=== PATIENT | male | born 1930 | race Caucasian/White ===

== ENCOUNTER 2017-08-17 16:05 | Inpatient (IN) | payer MEDICARE, OTHER ==
[~2017-08-17] VITALS: Ht 182.9 cm; Wt 79.5 kg
[~2017-08-17 16:05] MED LIST: AMIO200T57 PO; AMLO2.5T PO; APIX2.5T PO; FURO-149 PO; NITR0.4T48 SL; OMEP20CA4 PO; POTA20TA19 PO
[2017-08-17] MEDS ORDERED: normal saline 1000ML IV soln IVB ONE (17:10)
[2017-08-17] MEDS ORDERED: ipratropium/albuterol 3ml nebule NEB ONE (17:10)
[2017-08-17] MEDS ORDERED: oseltamivir phos 75mg capsule PO ONE (17:30)
[2017-08-17 17:33] LABS: BASOPHILS # (AUTO) 0.1 X10'3 (0-0.2); BASOPHILS % (AUTO) 0.5 % (0-1); EOSINOPHILS % (AUTO) 0.3 % (0-6); HEMATOCRIT 38.7 % (42.0-52.0); HEMOGLOBIN 13.3 g/dl (14.0-17.9); LYMPHOCYTES # (AUTO) 0.4 X10'3 (1.1-4.8); LYMPHOCYTES % (AUTO) 3.4 % (21-51); MEAN CORPUSCULAR HEMOGLOBIN 30.1 PG (27.0-31.0); MEAN CORPUSCULAR HGB CONC 34.3 % (33.0-36.5); MEAN CORPUSCULAR VOLUME 87.7 FL (78-98); MEAN PLATELET VOLUME 9.1 FL (7.4-10.4); MONOCYTES # (AUTO) 0.5 X10'3 (0-0.9); NEUTROPHILS # (AUTO) 9.5 X10'3 (1.8-7.7); NEUTROPHILS % (AUTO) 90.8 % (42-75); PLATELET COUNT 157 X10'3 (140-440); RED BLOOD COUNT 4.42 X10'6 (4.70-6.10); RED CELL DISTRIBUTION WIDTH 15.1 % (11.5-14.5); WHITE BLOOD COUNT 10.4 X10'3 (4.5-11.0)
[2017-08-17 17:45] LABS: INR 1.1 INR; PARTIAL THROMBOPLASTIN TIME 24 SECONDS (22-32)
[2017-08-17 17:49] LABS: ALANINE AMINOTRANSFERASE 27 U/L (12-78); ALBUMIN 3.8 G/DL (3.4-5.0); ALBUMIN/GLOBULIN RATIO 1.4 (1.1-1.5); ALKALINE PHOSPHATASE 56 IU/L (46-116); ANION GAP 10 (8-16); ASPARTATE AMINO TRANSFERASE 19 U/L (10-37); BILIRUBIN,TOTAL 0.9 MG/DL (0.1-1.0); BLOOD UREA NITROGEN 15 MG/DL (7-18); BUN/CREATININE RATIO 12.5 (5.4-32.0); CALCIUM 8.4 MG/DL (8.5-10.1); CHLORIDE 99 MMOL/L (99-107); GLUCOSE 115 MG/DL (70-104); POTASSIUM 4.2 MMOL/L (3.5-5.1); SODIUM 136 MMOL/L (135-145); TOTAL PROTEIN 6.5 G/DL (6.4-8.2); eGFR 57 ML/MIN
[2017-08-17] MEDS ORDERED: magnesium 4gm in 100ml NS 100 ML IV PRN (18:35)
[2017-08-17] MEDS ORDERED: magnesium hydroxide 30ml (MOM) UD suspension PO PRN (18:35)
[2017-08-17] MEDS ORDERED: mag hydrox/Alum hydrox/simeth 30ml oral suspension PO PRN (18:35)
[2017-08-17] MEDS ORDERED: potassium Cl 20 mEq SR tablet PO PRN ×2 (18:35)
[2017-08-17] MEDS ORDERED: HYDROcodone/acetaminophen 5mg/325mg tablet PO PRN (18:35)
[2017-08-17] MEDS ORDERED: ondansetron/PF 4mg/2ml inj IV PRN (18:35)
[2017-08-17] MEDS ORDERED: acetaminophen 325mg tablet PO PRN (18:35)
[2017-08-17] MEDS ORDERED: magnesium Cl slow-release 64mg tablet PO PRN (18:35)
[2017-08-17] MEDS ORDERED: potassium Cl 40MEQ/NS 500ml 500 ML IV PRN ×2 (18:35)
[2017-08-17] MEDS ORDERED: magnesium 2GM in 50ml NS 50 ML IV PRN (18:35)
[2017-08-17] MEDS ORDERED: bisacodyl 10mg suppository rectal RC PRN (18:35)
[2017-08-17] MEDS ORDERED: nitroGLYCERIN 0.4mg SUBLingual tab SL PRN (18:40)
[2017-08-17] MEDS ORDERED: CARV6.253 PO (18:53)
[2017-08-17] MEDS ORDERED: CARV-50 PO (18:53)
[2017-08-17] MEDS ORDERED: LISI-600 PO (18:56)
[2017-08-17] MEDS ORDERED: HYDR-4070 PO (18:57)
[2017-08-17] MEDS: levoFLOXACIN-Levaquin 750MG/D5 150 ML IV SCH (19:04)
[2017-08-17] MEDS: sodium chloride 0.45% 1,000 ML IV SCH (19:11)
[2017-08-17] MEDS: docusate sod 100mg capsule PO SCH (19:12)
[2017-08-17] MEDS: potassium Cl 20 mEq SR tablet PO SCH (19:12)
[2017-08-17] MEDS: guaiFENesin 200 MG/10 ML oral syrup UD cup PO SCH (19:12)
[2017-08-17] MEDS ORDERED: apixaban 2.5mg tablet PO SCH (20:00)
[2017-08-18] VITALS: BP 128/74
[2017-08-18] MEDS: guaiFENesin 200 MG/10 ML oral syrup UD cup PO SCH ×4 (02:28→20:48)
[2017-08-18 03:43] LABS: BASOPHILS % (AUTO) 0 % (0-1); EOSINOPHILS # (AUTO) 0.2 X10'3 (0-0.9); EOSINOPHILS % (AUTO) 1.3 % (0-6); HEMATOCRIT 30.6 % (42.0-52.0); HEMOGLOBIN 10.7 g/dl (14.0-17.9); LYMPHOCYTES % (AUTO) 6.6 % (21-51); MEAN CORPUSCULAR HEMOGLOBIN 30.3 PG (27.0-31.0); MEAN CORPUSCULAR VOLUME 86.5 FL (78-98); MEAN PLATELET VOLUME 9.8 FL (7.4-10.4); MONOCYTES % (AUTO) 6.6 % (2-12); NEUTROPHILS # (AUTO) 12.7 X10'3 (1.8-7.7); NEUTROPHILS % (AUTO) 85.5 % (42-75); PLATELET COUNT 120 X10'3 (140-440); RED BLOOD COUNT 3.53 X10'6 (4.70-6.10); RED CELL DISTRIBUTION WIDTH 14.6 % (11.5-14.5); WHITE BLOOD COUNT 14.8 X10'3 (4.5-11.0)
[2017-08-18 03:51] LABS: ALBUMIN 2.8 G/DL (3.4-5.0); ANION GAP 6 (8-16); BLOOD UREA NITROGEN 18 MG/DL (7-18); BUN/CREATININE RATIO 13.4 (5.4-32.0); CALCIUM 7.6 MG/DL (8.5-10.1); CHLORIDE 98 MMOL/L (99-107); CREATININE 1.34 MG/DL (0.60-1.10); GLUCOSE 120 MG/DL (70-104); MAGNESIUM 1.8 MG/DL (1.5-2.4); POTASSIUM 4.9 MMOL/L (3.5-5.1); SODIUM 131 MMOL/L (135-145); TOTAL CARBON DIOXIDE 26.7 MMOL/L (24-32); eGFR 50 ML/MIN
[2017-08-18] MEDS: K and/or MAG REPLACEMENT MC SCH (06:24)
[2017-08-18 07:00] VITALS: BP 98/50
[2017-08-18] MEDS: sodium chloride 0.45% 1,000 ML IV SCH (07:25)
[2017-08-18] MEDS: levoFLOXACIN-Levaquin 750MG/D5 150 ML IV SCH (07:27)
[2017-08-18] MEDS: docusate sod 100mg capsule PO SCH ×2 (07:29→20:48)
[2017-08-18] MEDS: pantoprazole 40mg Tablet.DR PO SCH (07:29)
[2017-08-18] MEDS: potassium Cl 20 mEq SR tablet PO SCH ×2 (07:29→20:48)
[2017-08-18] MEDS: amiodarone 200mg tablet PO SCH (07:29)
[2017-08-18] MEDS: enoxaparin 40mg/0.4ml syringe SUBCUT SCH (07:30)
[2017-08-18] MEDS: aspirin 81mg tablet.DR PO SCH (07:30)
[2017-08-18] MEDS ORDERED: amLODIPine 5mg tablet PO SCH (08:00)
[2017-08-18] MEDS ORDERED: non-formulary drug (Omeprazole (Prilosec) 1 CAP) PO SCH (08:00)
[2017-08-18] MEDS ORDERED: furosemide 40mg tablet PO SCH (08:00)
[2017-08-18 11:30] VITALS: BP 138/71
[2017-08-18] MEDS: lactobacillus rhamnosus 10,000 MMU CELLS/CAPSULE PO SCH (17:39)
[2017-08-18 19:30] VITALS: BP 171/93
[2017-08-18] MEDS: albuterol 2.5 MG/3 ML nebule NEB PRN (21:41)
[2017-08-18 23:30] VITALS: BP 157/72
[2017-08-19] MEDS: guaiFENesin 200 MG/10 ML oral syrup UD cup PO SCH ×4 (02:30→20:22)
[2017-08-19] MEDS: albuterol 2.5 MG/3 ML nebule NEB PRN ×2 (05:44→15:32)
[2017-08-19 06:03] LABS: BASOPHILS % (AUTO) 0.1 % (0-1); EOSINOPHILS # (AUTO) 0.2 X10'3 (0-0.9); HEMATOCRIT 31.8 % (42.0-52.0); LYMPHOCYTES # (AUTO) 0.7 X10'3 (1.1-4.8); LYMPHOCYTES % (AUTO) 6.6 % (21-51); MEAN CORPUSCULAR HEMOGLOBIN 30.4 PG (27.0-31.0); MEAN CORPUSCULAR HGB CONC 34.5 % (33.0-36.5); MEAN CORPUSCULAR VOLUME 88.1 FL (78-98); MEAN PLATELET VOLUME 9.9 FL (7.4-10.4); MONOCYTES # (AUTO) 0.9 X10'3 (0-0.9); MONOCYTES % (AUTO) 7.9 % (2-12); NEUTROPHILS # (AUTO) 9.4 X10'3 (1.8-7.7); NEUTROPHILS % (AUTO) 83.4 % (42-75); PLATELET COUNT 121 X10'3 (140-440); RED BLOOD COUNT 3.61 X10'6 (4.70-6.10); RED CELL DISTRIBUTION WIDTH 14.5 % (11.5-14.5); WHITE BLOOD COUNT 11.3 X10'3 (4.5-11.0)
[2017-08-19 06:07] LABS: ALBUMIN 2.8 G/DL (3.4-5.0); ANION GAP 7 (8-16); BLOOD UREA NITROGEN 20 MG/DL (7-18); CHLORIDE 97 MMOL/L (99-107); CREATININE 1.25 MG/DL (0.60-1.10); GLUCOSE 101 MG/DL (70-104); MAGNESIUM 1.8 MG/DL (1.5-2.4); POTASSIUM 4.7 MMOL/L (3.5-5.1); SODIUM 129 MMOL/L (135-145); eGFR 55 ML/MIN
[2017-08-19 07:30] VITALS: BP 157/87
[2017-08-19] MEDS: K and/or MAG REPLACEMENT MC SCH (08:00)
[2017-08-19] MEDS ORDERED: furosemide 20MG tablet PO SCH (08:00)
[2017-08-19] MEDS: docusate sod 100mg capsule PO SCH ×2 (08:00→20:22)
[2017-08-19] MEDS: amiodarone 200mg tablet PO SCH (08:00)
[2017-08-19] MEDS: lactobacillus rhamnosus 10,000 MMU CELLS/CAPSULE PO SCH ×2 (08:45→16:37)
[2017-08-19] MEDS: pantoprazole 40mg Tablet.DR PO SCH (08:45)
[2017-08-19] MEDS: levoFLOXACIN-Levaquin 750MG/D5 150 ML IV SCH (08:45)
[2017-08-19] MEDS: aspirin 81mg tablet.DR PO SCH (08:48)
[2017-08-19] MEDS: enoxaparin 40mg/0.4ml syringe SUBCUT SCH (08:49)
[2017-08-19] MEDS: normal saline 1000ml 1,000 ML IV SCH ×2 (08:49→20:23)
[2017-08-19 11:54] VITALS: BP 153/83
[2017-08-19 12:02] LABS: ALBUMIN 2.8 G/DL (3.4-5.0); ANION GAP 6 (8-16); BLOOD UREA NITROGEN 20 MG/DL (7-18); BUN/CREATININE RATIO 15.6 (5.4-32.0); CHLORIDE 97 MMOL/L (99-107); CREATININE 1.28 MG/DL (0.60-1.10); GLUCOSE 110 MG/DL (70-104); POTASSIUM 4.4 MMOL/L (3.5-5.1); SODIUM 128 MMOL/L (135-145); TOTAL CARBON DIOXIDE 24.6 MMOL/L (24-32); eGFR 53 ML/MIN
[2017-08-19 19:00] VITALS: BP 143/83
[2017-08-20] VITALS: BP 159/81
[2017-08-20] MEDS: guaiFENesin 200 MG/10 ML oral syrup UD cup PO SCH ×5 (02:00→22:22)
[2017-08-20] MEDS: albuterol 2.5 MG/3 ML nebule NEB PRN ×3 (03:43→22:28)
[2017-08-20 06:15] LABS: BASOPHILS % (AUTO) 0 % (0-1); EOSINOPHILS % (AUTO) 0.2 % (0-6); HEMATOCRIT 32.4 % (42.0-52.0); HEMOGLOBIN 11.1 g/dl (14.0-17.9); LYMPHOCYTES # (AUTO) 0.4 X10'3 (1.1-4.8); LYMPHOCYTES % (AUTO) 5.1 % (21-51); MEAN CORPUSCULAR HEMOGLOBIN 30.3 PG (27.0-31.0); MEAN CORPUSCULAR HGB CONC 34.5 % (33.0-36.5); MEAN CORPUSCULAR VOLUME 87.9 FL (78-98); MEAN PLATELET VOLUME 9.3 FL (7.4-10.4); MONOCYTES # (AUTO) 0.9 X10'3 (0-0.9); MONOCYTES % (AUTO) 10.2 % (2-12); NEUTROPHILS # (AUTO) 7.3 X10'3 (1.8-7.7); NEUTROPHILS % (AUTO) 84.5 % (42-75); PLATELET COUNT 123 X10'3 (140-440); RED BLOOD COUNT 3.68 X10'6 (4.70-6.10); RED CELL DISTRIBUTION WIDTH 14.6 % (11.5-14.5); WHITE BLOOD COUNT 8.6 X10'3 (4.5-11.0)
[2017-08-20 06:23] LABS: ALBUMIN 3.1 G/DL (3.4-5.0); ANION GAP 9 (8-16); BLOOD UREA NITROGEN 15 MG/DL (7-18); BUN/CREATININE RATIO 12.5 (5.4-32.0); CALCIUM 7.8 MG/DL (8.5-10.1); CHLORIDE 95 MMOL/L (99-107); GLUCOSE 105 MG/DL (70-104); MAGNESIUM 1.7 MG/DL (1.5-2.4); POTASSIUM 4.2 MMOL/L (3.5-5.1); SODIUM 127 MMOL/L (135-145); TOTAL CARBON DIOXIDE 23.1 MMOL/L (24-32); eGFR 57 ML/MIN
[2017-08-20 07:33] VITALS: BP 168/90
[2017-08-20] MEDS: pantoprazole 40mg Tablet.DR PO SCH (07:49)
[2017-08-20] MEDS: lactobacillus rhamnosus 10,000 MMU CELLS/CAPSULE PO SCH ×2 (07:49→16:35)
[2017-08-20] MEDS: normal saline 1000ml 1,000 ML IV SCH (07:50)
[2017-08-20] MEDS: docusate sod 100mg capsule PO SCH ×2 (07:50→22:22)
[2017-08-20] MEDS: amiodarone 200mg tablet PO SCH (07:50)
[2017-08-20] MEDS: aspirin 81mg tablet.DR PO SCH (07:51)
[2017-08-20] MEDS: enoxaparin 40mg/0.4ml syringe SUBCUT SCH (07:52)
[2017-08-20] MEDS: K and/or MAG REPLACEMENT MC SCH (08:00)
[2017-08-20] MEDS ORDERED: furosemide 40mg/4ml inj IV ONE (10:05)
[2017-08-20] MEDS ORDERED: furosemide 20 MG/2 ML vial IV ONE (10:10)
[2017-08-20 12:10] VITALS: BP_SYST 99
[2017-08-20 20:00] VITALS: BP 162/95
[2017-08-20] MEDS ORDERED: carvedilol 6.25mg tablet PO SCH (20:00)
[2017-08-20 21:25] LABS: ALBUMIN 3.1 G/DL (3.4-5.0); ANION GAP 8 (8-16); BLOOD UREA NITROGEN 18 MG/DL (7-18); BUN/CREATININE RATIO 14.2 (5.4-32.0); CALCIUM 8.3 MG/DL (8.5-10.1); CHLORIDE 94 MMOL/L (99-107); CREATININE 1.27 MG/DL (0.60-1.10); GLUCOSE 119 MG/DL (70-104); POTASSIUM 4.1 MMOL/L (3.5-5.1); SODIUM 128 MMOL/L (135-145); TOTAL CARBON DIOXIDE 26.3 MMOL/L (24-32); eGFR 54 ML/MIN
[2017-08-20] MEDS: furosemide 20 MG/2 ML vial IV SCH (22:21)
[2017-08-20] MEDS: carVEDilol 3.125mg tablet PO SCH (22:22)
[2017-08-21] VITALS: BP 131/91
[2017-08-21] MEDS: guaiFENesin 200 MG/10 ML oral syrup UD cup PO SCH ×4 (02:00→21:06)
[2017-08-21 06:08] LABS: ALBUMIN 2.9 G/DL (3.4-5.0); ANION GAP 7 (8-16); BLOOD UREA NITROGEN 15 MG/DL (7-18); BUN/CREATININE RATIO 12.2 (5.4-32.0); CHLORIDE 95 MMOL/L (99-107); CREATININE 1.23 MG/DL (0.60-1.10); GLUCOSE 105 MG/DL (70-104); MAGNESIUM 1.8 MG/DL (1.5-2.4); POTASSIUM 3.9 MMOL/L (3.5-5.1); SODIUM 129 MMOL/L (135-145); TOTAL CARBON DIOXIDE 27.2 MMOL/L (24-32); eGFR 56 ML/MIN
[2017-08-21 07:00] VITALS: BP 158/84
[2017-08-21] MEDS: enoxaparin 40mg/0.4ml syringe SUBCUT SCH (08:00)
[2017-08-21] MEDS ORDERED: carvedilol 6.25mg tablet PO SCH (08:00)
[2017-08-21] MEDS: K and/or MAG REPLACEMENT MC SCH (08:00)
[2017-08-21] MEDS: furosemide 20 MG/2 ML vial IV SCH ×2 (08:00→10:04)
[2017-08-21] MEDS: aspirin 81mg tablet.DR PO SCH (08:26)
[2017-08-21] MEDS: carVEDilol 3.125mg tablet PO SCH ×2 (08:26→21:06)
[2017-08-21] MEDS: amiodarone 200mg tablet PO SCH (08:26)
[2017-08-21] MEDS: docusate sod 100mg capsule PO SCH ×2 (08:26→21:06)
[2017-08-21] MEDS: lactobacillus rhamnosus 10,000 MMU CELLS/CAPSULE PO SCH ×2 (08:26→17:37)
[2017-08-21] MEDS: pantoprazole 40mg Tablet.DR PO SCH (08:26)
[2017-08-21] MEDS: levoFLOXACIN-Levaquin 750MG/D5 150 ML IV SCH (08:27)
[2017-08-21 11:00] VITALS: BP 142/82
[2017-08-21] MEDS: methylPREDNISolone sod succ 125mg/2ml vial IV SCH (17:37)
[2017-08-21] MEDS: benzonatate 100mg capsule PO SCH (17:37)
[2017-08-21] MEDS: ipratropium/albuterol 3ml nebule NEB SCH ×2 (19:00→23:13)
[2017-08-21 20:00] VITALS: BP 165/90
[2017-08-22] VITALS: BP 165/94
[2017-08-22] MEDS: methylPREDNISolone sod succ 125mg/2ml vial IV SCH ×2 (01:12→08:39)
[2017-08-22] MEDS: guaiFENesin 200 MG/10 ML oral syrup UD cup PO SCH ×2 (01:12→08:40)
[2017-08-22] MEDS: benzonatate 100mg capsule PO SCH ×2 (01:12→08:41)
[2017-08-22] MEDS: ipratropium/albuterol 3ml nebule NEB SCH ×3 (03:01→11:17)
[2017-08-22 05:40] LABS: ANION GAP 7 (8-16); BLOOD UREA NITROGEN 18 MG/DL (7-18); BUN/CREATININE RATIO 16.7 (5.4-32.0); CALCIUM 7.8 MG/DL (8.5-10.1); CHLORIDE 92 MMOL/L (99-107); CREATININE 1.08 MG/DL (0.60-1.10); GLUCOSE 137 MG/DL (70-104); POTASSIUM 3.8 MMOL/L (3.5-5.1); SODIUM 127 MMOL/L (135-145); TOTAL CARBON DIOXIDE 28.5 MMOL/L (24-32); eGFR 65 ML/MIN
[2017-08-22 06:00] VITALS: BP 159/87
[2017-08-22] MEDS: amiodarone 200mg tablet PO SCH (08:00)
[2017-08-22] MEDS: K and/or MAG REPLACEMENT MC SCH (08:00)
[2017-08-22] MEDS: furosemide 20 MG/2 ML vial IV SCH (08:39)
[2017-08-22] MEDS: carVEDilol 3.125mg tablet PO SCH (08:40)
[2017-08-22] MEDS: lactobacillus rhamnosus 10,000 MMU CELLS/CAPSULE PO SCH (08:40)
[2017-08-22] MEDS: docusate sod 100mg capsule PO SCH (08:40)
[2017-08-22] MEDS: aspirin 81mg tablet.DR PO SCH (08:40)
[2017-08-22] MEDS: enoxaparin 40mg/0.4ml syringe SUBCUT SCH (08:40)
[2017-08-22] MEDS: pantoprazole 40mg Tablet.DR PO SCH (08:40)
[2017-08-22] MEDS: levoFLOXACIN-Levaquin 750MG/D5 150 ML IV SCH (08:41)
[2017-08-22 08:58] LABS: ALBUMIN 3.2 G/DL (3.4-5.0); ANION GAP 10 (8-16); BLOOD UREA NITROGEN 19 MG/DL (7-18); BUN/CREATININE RATIO 15.8 (5.4-32.0); CALCIUM 8.2 MG/DL (8.5-10.1); CHLORIDE 92 MMOL/L (99-107); GLUCOSE 174 MG/DL (70-104); POTASSIUM 3.8 MMOL/L (3.5-5.1); SODIUM 129 MMOL/L (135-145); TOTAL CARBON DIOXIDE 26.8 MMOL/L (24-32); eGFR 57 ML/MIN
[2017-08-22] MEDS ORDERED: ALBU6.7H INH (10:31)
[2017-08-22] MEDS ORDERED: PANT40TA4 PO (10:31)
[2017-08-22] MEDS ORDERED: BENZ-34 PO (10:31)
[2017-08-22] MEDS ORDERED: LEVO750T21 PO (10:31)
[2017-08-22] MEDS ORDERED: PRED10TA23 PO (10:31)
[2017-08-22] MEDS ORDERED: ASPI-1071 PO (10:31)
[2017-08-22] MEDS ORDERED: FURO-150 PO (10:31)
[2017-08-22 11:30] VITALS: BP 152/86
== END 2017-08-22 14:36 | disposition home or self-care (01) | DRG 193 ==
LOC: ER 16:06 → ED HOLD 17:55 → EDBEDREQTM 21:55 → EDBEDREQ 21:55 → SUR 3N 22:22
PROVIDERS: ADMIT Internal Medicine; ATTEND Internal Medicine
DX: J18.1 Lobar pneumonia, unspecified organism (principal); I50.21 Acute systolic (congestive) heart failure; E87.1 Hypo-osmolality and hyponatremia; I48.91 Unspecified atrial fibrillation; J42 Unspecified chronic bronchitis; I89.0 Lymphedema, not elsewhere classified; R09.02 Hypoxemia; Z90.49 Acquired absence of other specified parts of digestive tract; Z90.79 Acquired absence of other genital organ(s); Z95.0 Presence of cardiac pacemaker; Z79.899 Other long term (current) drug therapy; Z91.018 Allergy to other foods; Z85.46 Personal history of malignant neoplasm of prostate
CPT/HCPCS: 36415; 71045; 71046; 71250; 80048; 80053; 83605; 83735; 84439; 84443; 84484; 85025; 85610; 85730; 87040; 87070; 87502; 87503; 93005; 93306; 94640; 94667; 94760; 97110; 97116; 97162; 99285; J1650; J1940; J1956; J2405; J2930; J7030

== ENCOUNTER 2017-08-26 09:59 | Inpatient (IN) | payer MEDICARE, OTHER ==
[~2017-08-26] VITALS: Ht 185.4 cm; Wt 86.4 kg
[~2017-08-26 09:59] MED LIST changes: +ALBU6.7H INH; -AMIO200T57 PO; -AMLO2.5T PO; -APIX2.5T PO; +ASPI-1071 PO; +BENZ-34 PO; +CARV6.253 PO; -FURO-149 PO; +FURO-150 PO; +HYDR-4070 PO; +LEVO750T21 PO; +LISI-600 PO; -OMEP20CA4 PO; +PANT40TA4 PO; -POTA20TA19 PO; +PRED10TA23 PO
[2017-08-26] MEDS ORDERED: normal saline 1000ml 1,000 ML IV ONE (10:05)
[2017-08-26 10:22] LABS: BASOPHILS % (AUTO) 0.3 % (0-1); EOSINOPHILS # (AUTO) 0.1 X10'3 (0-0.9); EOSINOPHILS % (AUTO) 1.2 % (0-6); HEMATOCRIT 36.3 % (42.0-52.0); HEMOGLOBIN 12.5 g/dl (14.0-17.9); LYMPHOCYTES # (AUTO) 1.1 X10'3 (1.1-4.8); LYMPHOCYTES % (AUTO) 17.5 % (21-51); MEAN CORPUSCULAR HEMOGLOBIN 29.7 PG (27.0-31.0); MEAN CORPUSCULAR HGB CONC 34.5 % (33.0-36.5); MEAN CORPUSCULAR VOLUME 86.1 FL (78-98); MEAN PLATELET VOLUME 8.5 FL (7.4-10.4); MONOCYTES # (AUTO) 0.7 X10'3 (0-0.9); MONOCYTES % (AUTO) 11.9 % (2-12); NEUTROPHILS # (AUTO) 4.1 X10'3 (1.8-7.7); NEUTROPHILS % (AUTO) 69.1 % (42-75); PLATELET COUNT 178 X10'3 (140-440); RED BLOOD COUNT 4.21 X10'6 (4.70-6.10); RED CELL DISTRIBUTION WIDTH 14.6 % (11.5-14.5)
[2017-08-26 10:28] LABS: INR 1.1 INR; PROTHROMBIN TIME 11.1 SECONDS (9.0-12.0)
[2017-08-26 10:47] LABS: ALANINE AMINOTRANSFERASE 33 U/L (12-78); ALBUMIN 2.9 G/DL (3.4-5.0); ALBUMIN/GLOBULIN RATIO 1.1 (1.1-1.5); ALKALINE PHOSPHATASE 45 IU/L (46-116); ANION GAP 9 (8-16); ASPARTATE AMINO TRANSFERASE 21 U/L (10-37); BILIRUBIN,TOTAL 0.4 MG/DL (0.1-1.0); BLOOD UREA NITROGEN 28 MG/DL (7-18); BUN/CREATININE RATIO 18.9 (5.4-32.0); CALCIUM 7.8 MG/DL (8.5-10.1); CHLORIDE 95 MMOL/L (99-107); CREATININE 1.48 MG/DL (0.60-1.10); GLUCOSE 135 MG/DL (70-104); MAGNESIUM 2.2 MG/DL (1.5-2.4); PHOSPHORUS 3.7 MG/DL (2.3-4.5); POTASSIUM 3.8 MMOL/L (3.5-5.1); SODIUM 131 MMOL/L (135-145); TOTAL CARBON DIOXIDE 27.5 MMOL/L (24-32); TOTAL PROTEIN 5.6 G/DL (6.4-8.2); eGFR 45 ML/MIN
[2017-08-26] MEDS ORDERED: cefTRIAXone 1g/NS 100ml IVPB 100 ML IV ONE (12:05)
[2017-08-26 12:23] LABS: CLARITY,URINE CLEAR (Clear); COLOR,URINE STRAW (Yellow); GLUCOSE, URINE NEGATIVE (Neg); KETONES,URINE NEGATIVE (Neg); LEUKOCYTE ESTERASE ,URINE NEGATIVE (Neg); NITRITES, URINE NEGATIVE (Neg); OCCULT BLOOD,URINE NEGATIVE (Neg); PROTEIN,URINE NEGATIVE (Neg); UROBILINOGEN,URINE 0.2 E.U/dL (0.2-1.0)
[2017-08-26 12:29] LABS: UA COLLECTION TYPE VOIDED
[2017-08-26 12:38] LABS: URINE AMPHETAMINE SCREEN NEGATIVE (Neg); URINE BARBITUATE SCREEN NEGATIVE (Neg); URINE BENZODIAZEPINES SCREEN NEGATIVE (Neg); URINE CANNABINOID SCREEN NEGATIVE (Neg); URINE COCAINE SCREEN NEGATIVE (Neg); URINE METHADONE SCREEN NEGATIVE (Neg); URINE OPIATE SCREEN NEGATIVE (Neg); URINE PHENCYCLIDINE SCREEN NEGATIVE (Neg)
[2017-08-26] MEDS ORDERED: acetaminophen 325mg tablet PO PRN (13:10)
[2017-08-26] MEDS ORDERED: ondansetron/PF 4mg/2ml inj IV PRN (13:10)
[2017-08-26] MEDS ORDERED: mag hydrox/Alum hydrox/simeth 30ml oral suspension PO PRN (13:10)
[2017-08-26] MEDS ORDERED: nitroGLYCERIN 0.4mg SUBLingual tab SL PRN (13:15)
[2017-08-26] MEDS ORDERED: albuterol 2.5 MG/3 ML nebule NEB PRN (13:35)
[2017-08-26 15:00] VITALS: BP 153/92
[2017-08-26] MEDS: normal saline 1000ml 1,000 ML IV SCH (16:50)
[2017-08-26 18:00] VITALS: BP 153/92
[2017-08-26] MEDS: heparin, porcine 5000 units/ml vial SQ SCH (19:53)
[2017-08-26] MEDS: carvedilol 6.25mg tablet PO SCH (19:55)
[2017-08-26] MEDS: hydrALAZINE 25 MG tablet PO SCH (19:55)
[2017-08-26 22:00] VITALS: BP 153/84
[2017-08-27 02:00] VITALS: BP 129/72
[2017-08-27] MEDS: guaiFENesin 200 MG/10 ML oral syrup UD cup PO PRN (05:34)
[2017-08-27 06:00] VITALS: BP 117/74
[2017-08-27 06:30] LABS: BASOPHILS % (AUTO) 0.2 % (0-1); EOSINOPHILS # (AUTO) 0.1 X10'3 (0-0.9); HEMATOCRIT 37.7 % (42.0-52.0); HEMOGLOBIN 12.9 g/dl (14.0-17.9); LYMPHOCYTES # (AUTO) 1.3 X10'3 (1.1-4.8); LYMPHOCYTES % (AUTO) 20.2 % (21-51); MEAN CORPUSCULAR HGB CONC 34.3 % (33.0-36.5); MEAN CORPUSCULAR VOLUME 87.2 FL (78-98); MEAN PLATELET VOLUME 8.6 FL (7.4-10.4); MONOCYTES # (AUTO) 0.5 X10'3 (0-0.9); MONOCYTES % (AUTO) 8.5 % (2-12); NEUTROPHILS # (AUTO) 4.5 X10'3 (1.8-7.7); NEUTROPHILS % (AUTO) 69.1 % (42-75); PLATELET COUNT 159 X10'3 (140-440); RED BLOOD COUNT 4.32 X10'6 (4.70-6.10); RED CELL DISTRIBUTION WIDTH 14.5 % (11.5-14.5); WHITE BLOOD COUNT 6.5 X10'3 (4.5-11.0)
[2017-08-27 07:06] LABS: ALBUMIN 2.7 G/DL (3.4-5.0); ANION GAP 8 (8-16); BLOOD UREA NITROGEN 27 MG/DL (7-18); BUN/CREATININE RATIO 20.5 (5.4-32.0); CALCIUM 7.7 MG/DL (8.5-10.1); CHLORIDE 99 MMOL/L (99-107); CHOL/HDL RATIO 4.8 (0.00-4.99); CHOLESTEROL 157 MG/DL (0-200); CREATININE 1.32 MG/DL (0.60-1.10); GLUCOSE 89 MG/DL (70-104); HDL CHOLESTEROL 33 MG/DL (35-60); LDL CHOLESTEROL 99 MG/DL (50-100); POTASSIUM 3.8 MMOL/L (3.5-5.1); SODIUM 133 MMOL/L (135-145); TRIGLYCERIDES 103 MG/DL (20-135); eGFR 51 ML/MIN
[2017-08-27] MEDS: hydrALAZINE 25 MG tablet PO SCH ×2 (08:00→21:31)
[2017-08-27] MEDS: carvedilol 6.25mg tablet PO SCH ×2 (08:00→21:31)
[2017-08-27] MEDS: pantoprazole 40mg Tablet.DR PO SCH (08:20)
[2017-08-27] MEDS: aspirin 81mg tablet.DR PO SCH (08:20)
[2017-08-27] MEDS: normal saline 1000ml 1,000 ML IV SCH ×2 (08:24→23:17)
[2017-08-27] MEDS: heparin, porcine 5000 units/ml vial SQ SCH ×2 (08:26→21:31)
[2017-08-27 10:00] VITALS: BP 114/69
[2017-08-27 14:00] VITALS: BP 125/84
[2017-08-27] MEDS: magnesium hydroxide 30ml (MOM) UD suspension PO PRN (14:09)
[2017-08-27 18:46] VITALS: BP 165/92
[2017-08-27 22:30] VITALS: BP 177/93
[2017-08-28] VITALS (11 sets, daily range): BP systolic 124–188; BP diastolic 68–106
[2017-08-28] MEDS: guaiFENesin 200 MG/10 ML oral syrup UD cup PO PRN (02:32)
[2017-08-28 07:07] LABS: BASOPHILS % (AUTO) 0 % (0-1); EOSINOPHILS # (AUTO) 0.3 X10'3 (0-0.9); EOSINOPHILS % (AUTO) 4.1 % (0-6); HEMATOCRIT 39.1 % (42.0-52.0); HEMOGLOBIN 13.3 g/dl (14.0-17.9); LYMPHOCYTES # (AUTO) 1.4 X10'3 (1.1-4.8); LYMPHOCYTES % (AUTO) 19.4 % (21-51); MEAN CORPUSCULAR HEMOGLOBIN 29.7 PG (27.0-31.0); MEAN CORPUSCULAR VOLUME 87.3 FL (78-98); MEAN PLATELET VOLUME 8.2 FL (7.4-10.4); MONOCYTES # (AUTO) 0.7 X10'3 (0-0.9); MONOCYTES % (AUTO) 8.8 % (2-12); NEUTROPHILS % (AUTO) 67.7 % (42-75); PLATELET COUNT 170 X10'3 (140-440); RED BLOOD COUNT 4.48 X10'6 (4.70-6.10); RED CELL DISTRIBUTION WIDTH 14.6 % (11.5-14.5); WHITE BLOOD COUNT 7.4 X10'3 (4.5-11.0)
[2017-08-28] MEDS: pantoprazole 40mg Tablet.DR PO SCH (07:14)
[2017-08-28] MEDS: hydrALAZINE 25 MG tablet PO SCH ×2 (07:14→22:58)
[2017-08-28] MEDS: atorvastatin 20mg tablet PO SCH (07:14)
[2017-08-28] MEDS: aspirin 81mg tablet.DR PO SCH (07:14)
[2017-08-28] MEDS: carvedilol 6.25mg tablet PO SCH ×2 (07:14→22:59)
[2017-08-28] MEDS: levoFLOXACIN 750MG TABLET PO SCH (07:14)
[2017-08-28] MEDS: heparin, porcine 5000 units/ml vial SQ SCH (07:15)
[2017-08-28 07:17] LABS: ALBUMIN 2.9 G/DL (3.4-5.0); ANION GAP 5 (8-16); BLOOD UREA NITROGEN 20 MG/DL (7-18); BUN/CREATININE RATIO 16.1 (5.4-32.0); CHLORIDE 99 MMOL/L (99-107); CREATININE 1.24 MG/DL (0.60-1.10); GLUCOSE 91 MG/DL (70-104); POTASSIUM 4.6 MMOL/L (3.5-5.1); SODIUM 133 MMOL/L (135-145); TOTAL CARBON DIOXIDE 28.7 MMOL/L (24-32); eGFR 55 ML/MIN
[2017-08-28] MEDS: magnesium hydroxide 30ml (MOM) UD suspension PO PRN (16:44)
[2017-08-28] MEDS: lactobacillus rhamnosus 10,000 MMU CELLS/CAPSULE PO SCH (16:45)
[2017-08-28] MEDS ORDERED: magnesium citrate 296ml oral solution PO ONE (21:00)
[2017-08-28] MEDS ORDERED: mineral oil 133ml enema RC PRN (21:00)
[2017-08-28] MEDS: apixaban 5mg tablet PO SCH (22:59)
[2017-08-29] VITALS (22 sets, daily range): BP systolic 67–176; BP diastolic 47–97
[2017-08-29] MEDS: normal saline 1000ml 1,000 ML IV SCH ×2 (01:09→07:38)
[2017-08-29 05:55] LABS: BASOPHILS % (AUTO) 0.2 % (0-1); EOSINOPHILS # (AUTO) 0.2 X10'3 (0-0.9); EOSINOPHILS % (AUTO) 3.2 % (0-6); HEMATOCRIT 39.8 % (42.0-52.0); HEMOGLOBIN 13.8 g/dl (14.0-17.9); LYMPHOCYTES # (AUTO) 1.3 X10'3 (1.1-4.8); LYMPHOCYTES % (AUTO) 17.6 % (21-51); MEAN CORPUSCULAR HGB CONC 34.6 % (33.0-36.5); MEAN CORPUSCULAR VOLUME 86.7 FL (78-98); MEAN PLATELET VOLUME 8.1 FL (7.4-10.4); MONOCYTES # (AUTO) 0.7 X10'3 (0-0.9); MONOCYTES % (AUTO) 8.6 % (2-12); NEUTROPHILS # (AUTO) 5.4 X10'3 (1.8-7.7); NEUTROPHILS % (AUTO) 70.4 % (42-75); PLATELET COUNT 179 X10'3 (140-440); RED BLOOD COUNT 4.59 X10'6 (4.70-6.10); RED CELL DISTRIBUTION WIDTH 14.8 % (11.5-14.5); WHITE BLOOD COUNT 7.6 X10'3 (4.5-11.0)
[2017-08-29 06:08] LABS: ALBUMIN 2.8 G/DL (3.4-5.0); ANION GAP 6 (8-16); BLOOD UREA NITROGEN 16 MG/DL (7-18); BUN/CREATININE RATIO 13.8 (5.4-32.0); CALCIUM 8.1 MG/DL (8.5-10.1); CHLORIDE 100 MMOL/L (99-107); CREATININE 1.16 MG/DL (0.60-1.10); GLUCOSE 97 MG/DL (70-104); POTASSIUM 4.5 MMOL/L (3.5-5.1); SODIUM 133 MMOL/L (135-145); TOTAL CARBON DIOXIDE 26.9 MMOL/L (24-32); eGFR 59 ML/MIN
[2017-08-29] MEDS: lactobacillus rhamnosus 10,000 MMU CELLS/CAPSULE PO SCH ×2 (07:38→17:02)
[2017-08-29] MEDS: aspirin 81mg tablet.DR PO SCH (07:39)
[2017-08-29] MEDS: pantoprazole 40mg Tablet.DR PO SCH (07:39)
[2017-08-29] MEDS: hydrALAZINE 25 MG tablet PO SCH ×2 (07:39→23:14)
[2017-08-29] MEDS: atorvastatin 20mg tablet PO SCH (07:39)
[2017-08-29] MEDS: apixaban 5mg tablet PO SCH ×2 (07:39→19:10)
[2017-08-29] MEDS: carvedilol 6.25mg tablet PO SCH ×2 (07:39→19:10)
[2017-08-29] MEDS ORDERED: normal saline 1000ml 1,000 ML IV ONE (09:25)
[2017-08-30 02:00] VITALS: BP 137/80
[2017-08-30 06:00] VITALS: BP 164/94
[2017-08-30 06:59] LABS: BASOPHILS % (AUTO) 0.5 % (0-1); EOSINOPHILS # (AUTO) 0.2 X10'3 (0-0.9); EOSINOPHILS % (AUTO) 3.6 % (0-6); HEMATOCRIT 37.9 % (42.0-52.0); LYMPHOCYTES # (AUTO) 1.3 X10'3 (1.1-4.8); LYMPHOCYTES % (AUTO) 20.7 % (21-51); MEAN CORPUSCULAR HEMOGLOBIN 29.8 PG (27.0-31.0); MEAN CORPUSCULAR HGB CONC 34.2 % (33.0-36.5); MEAN CORPUSCULAR VOLUME 87.1 FL (78-98); MEAN PLATELET VOLUME 8.1 FL (7.4-10.4); MONOCYTES # (AUTO) 0.6 X10'3 (0-0.9); MONOCYTES % (AUTO) 9.8 % (2-12); NEUTROPHILS # (AUTO) 4.2 X10'3 (1.8-7.7); NEUTROPHILS % (AUTO) 65.4 % (42-75); PLATELET COUNT 167 X10'3 (140-440); RED BLOOD COUNT 4.35 X10'6 (4.70-6.10); RED CELL DISTRIBUTION WIDTH 14.5 % (11.5-14.5); WHITE BLOOD COUNT 6.4 X10'3 (4.5-11.0)
[2017-08-30 07:25] LABS: ALBUMIN 2.8 G/DL (3.4-5.0); ANION GAP 7 (8-16); BLOOD UREA NITROGEN 20 MG/DL (7-18); BUN/CREATININE RATIO 15.5 (5.4-32.0); CALCIUM 7.9 MG/DL (8.5-10.1); CHLORIDE 101 MMOL/L (99-107); CREATININE 1.29 MG/DL (0.60-1.10); GLUCOSE 91 MG/DL (70-104); POTASSIUM 4.2 MMOL/L (3.5-5.1); SODIUM 132 MMOL/L (135-145); TOTAL CARBON DIOXIDE 23.7 MMOL/L (24-32); eGFR 53 ML/MIN
[2017-08-30 07:59] VITALS: BP_SYST 151; BP_SYST 164; BP_DIAS 82; BP_DIAS 91; BP_DIAS 94
[2017-08-30] MEDS: atorvastatin 20mg tablet PO SCH (08:55)
[2017-08-30] MEDS: aspirin 81mg tablet.DR PO SCH (08:55)
[2017-08-30] MEDS: pantoprazole 40mg Tablet.DR PO SCH (08:55)
[2017-08-30] MEDS: carvedilol 6.25mg tablet PO SCH (08:55)
[2017-08-30] MEDS: apixaban 5mg tablet PO SCH (08:55)
[2017-08-30] MEDS: levoFLOXACIN 750MG TABLET PO SCH (08:55)
[2017-08-30] MEDS: lactobacillus rhamnosus 10,000 MMU CELLS/CAPSULE PO SCH (08:55)
[2017-08-30 11:00] VITALS: BP 101/68
[2017-08-30 11:57] VITALS: BP 129/81
[2017-08-30] MEDS: hydrALAZINE 25 MG tablet PO SCH ×2 (11:57→12:03)
== END 2017-08-30 13:47 | disposition home or self-care (01) | DRG 682 ==
LOC: ER 09:59 → ED HOLD 13:09 → ORTHO 4S 15:00 → PCU 3S 08-28 15:30
PROVIDERS: ADMIT Internal Medicine; ATTEND Family Medicine
PROC: 4B02XSZ Measurement of Cardiac Pacemaker, External Approach (ICD-10-PCS; principal; 2017-08-27)
DX: N17.9 Acute kidney failure, unspecified (principal); G93.40 Encephalopathy, unspecified; I95.9 Hypotension, unspecified; I13.0 Hypertensive heart and chronic kidney disease with heart failure and stage 1 through stage 4 chronic kidney disease, or unspecified chronic kidney disease; I48.0 Paroxysmal atrial fibrillation; E87.1 Hypo-osmolality and hyponatremia; I50.42 Chronic combined systolic (congestive) and diastolic (congestive) heart failure; I49.5 Sick sinus syndrome; I48.92 Unspecified atrial flutter; D32.9 Benign neoplasm of meninges, unspecified; R55 Syncope and collapse; E03.9 Hypothyroidism, unspecified; G47.30 Sleep apnea, unspecified; E78.5 Hyperlipidemia, unspecified; N18.9 Chronic kidney disease, unspecified; Z90.6 Acquired absence of other parts of urinary tract; Z90.79 Acquired absence of other genital organ(s); Z95.0 Presence of cardiac pacemaker; Z88.8 Allergy status to other drugs, medicaments and biological substances; Z79.82 Long term (current) use of aspirin; Z79.899 Other long term (current) drug therapy; Z85.46 Personal history of malignant neoplasm of prostate; Z87.01 Personal history of pneumonia (recurrent)
CPT/HCPCS: 36415; 70450; 71045; 80048; 80053; 80061; 80305; 81003; 82140; 83605; 83735; 84100; 84443; 84484; 85025; 85610; 87040; 87070; 93005; 93660; 93880; 94760; 96361; 96365; 97110; 97116; 97161; 99285; A4315; J0696; J1644; J7030

== ENCOUNTER 2018-02-26 13:24 | Emergency (ER) | payer MEDICARE, OTHER ==
[~2018-02-26] VITALS: Ht 182.9 cm; Wt 80.0 kg
[~2018-02-26 13:24] MED LIST changes: -BENZ-34 PO; +BENZ-49 PO; -FURO-150 PO; -LEVO750T21 PO; -LISI-600 PO; -PRED10TA23 PO
[2018-02-26 13:55] LABS: BASOPHILS % (AUTO) 0.7 % (0-1); HEMATOCRIT 33.5 % (42.0-52.0); HEMOGLOBIN 11.2 g/dl (14.0-17.9); LYMPHOCYTES % (AUTO) 22.3 % (21-51); MEAN CORPUSCULAR HEMOGLOBIN 29.5 PG (27.0-31.0); MEAN CORPUSCULAR HGB CONC 33.3 % (33.0-36.5); MEAN CORPUSCULAR VOLUME 88.6 FL (78-98); MEAN PLATELET VOLUME 7.8 FL (7.4-10.4); MONOCYTES # (AUTO) 0.6 X10'3 (0-0.9); MONOCYTES % (AUTO) 13.3 % (2-12); NEUTROPHILS # (AUTO) 2.8 X10'3 (1.8-7.7); NEUTROPHILS % (AUTO) 62.7 % (42-75); PLATELET COUNT 153 X10'3 (140-440); RED BLOOD COUNT 3.78 X10'6 (4.70-6.10); RED CELL DISTRIBUTION WIDTH 16.1 % (11.5-14.5); WHITE BLOOD COUNT 4.4 X10'3 (4.5-11.0)
[2018-02-26 14:10] LABS: ALANINE AMINOTRANSFERASE 17 U/L (12-78); ALBUMIN 3.4 G/DL (3.4-5.0); ALBUMIN/GLOBULIN RATIO 1.4 (1.1-1.5); ALKALINE PHOSPHATASE 54 IU/L (46-116); ANION GAP 6 (8-16); ASPARTATE AMINO TRANSFERASE 23 U/L (10-37); BILIRUBIN,TOTAL 0.6 MG/DL (0.1-1.0); BLOOD UREA NITROGEN 21 MG/DL (7-18); BUN/CREATININE RATIO 14.6 (5.4-32.0); CALCIUM 8.5 MG/DL (8.5-10.1); CHLORIDE 99 MMOL/L (99-107); CREATININE 1.44 MG/DL (0.60-1.10); GLUCOSE 102 MG/DL (70-104); POTASSIUM 4.5 MMOL/L (3.5-5.1); SODIUM 132 MMOL/L (135-145); TOTAL PROTEIN 5.9 G/DL (6.4-8.2); eGFR 46 ML/MIN
[2018-02-26 14:15] LABS: MAGNESIUM 1.9 MG/DL (1.5-2.4)
[2018-02-26 17:25] VITALS: BP 156/76
== END 2018-02-26 17:27 | disposition home or self-care (01) ==
LOC: ER 13:25
DX: R55 Syncope and collapse (principal); I48.91 Unspecified atrial fibrillation; I10 Essential (primary) hypertension; Z90.89 Acquired absence of other organs; Z85.46 Personal history of malignant neoplasm of prostate; Z91.011 Allergy to milk products; Z95.0 Presence of cardiac pacemaker; Z79.82 Long term (current) use of aspirin
CPT/HCPCS: 36415; 71045; 80053; 83735; 83880; 84484; 85025; 93005; 99285; J7030

== ENCOUNTER 2018-02-28 18:19 | Inpatient (IN) | payer MEDICARE, OTHER ==
[~2018-02-28] VITALS: Ht 182.9 cm; Wt 76.3 kg
[2018-02-28 19:12] LABS: BASOPHILS % (AUTO) 0.4 % (0-1); EOSINOPHILS # (AUTO) 0.1 X10'3 (0-0.9); EOSINOPHILS % (AUTO) 1.9 % (0-6); HEMATOCRIT 34.5 % (42.0-52.0); HEMOGLOBIN 11.5 g/dl (14.0-17.9); LYMPHOCYTES # (AUTO) 1.2 X10'3 (1.1-4.8); LYMPHOCYTES % (AUTO) 20.6 % (21-51); MEAN CORPUSCULAR HEMOGLOBIN 29.7 PG (27.0-31.0); MEAN CORPUSCULAR HGB CONC 33.4 % (33.0-36.5); MEAN CORPUSCULAR VOLUME 88.9 FL (78-98); MEAN PLATELET VOLUME 8.5 FL (7.4-10.4); MONOCYTES # (AUTO) 0.8 X10'3 (0-0.9); MONOCYTES % (AUTO) 13.3 % (2-12); NEUTROPHILS # (AUTO) 3.8 X10'3 (1.8-7.7); NEUTROPHILS % (AUTO) 63.8 % (42-75); PLATELET COUNT 155 X10'3 (140-440); RED BLOOD COUNT 3.88 X10'6 (4.70-6.10); RED CELL DISTRIBUTION WIDTH 15.8 % (11.5-14.5); WHITE BLOOD COUNT 5.9 X10'3 (4.5-11.0)
[2018-02-28 19:19] LABS: INR 1.1 INR; PARTIAL THROMBOPLASTIN TIME 28 SECONDS (22-32); PROTHROMBIN TIME 11.8 SECONDS (9.0-12.0)
[2018-02-28 19:27] LABS: ALANINE AMINOTRANSFERASE 28 U/L (12-78); ALBUMIN 3.4 G/DL (3.4-5.0); ALBUMIN/GLOBULIN RATIO 1.3 (1.1-1.5); ALKALINE PHOSPHATASE 58 IU/L (46-116); ANION GAP 4 (8-16); ASPARTATE AMINO TRANSFERASE 22 U/L (10-37); BILIRUBIN,TOTAL 0.7 MG/DL (0.1-1.0); BLOOD UREA NITROGEN 20 MG/DL (7-18); BUN/CREATININE RATIO 13.8 (5.4-32.0); CALCIUM 8.6 MG/DL (8.5-10.1); CHLORIDE 98 MMOL/L (99-107); CREATININE 1.45 MG/DL (0.60-1.10); GLUCOSE 91 MG/DL (70-104); SODIUM 132 MMOL/L (135-145); TOTAL CARBON DIOXIDE 29.8 MMOL/L (24-32); eGFR 46 ML/MIN
[2018-02-28 20:09] LABS: CLARITY,URINE CLEAR (Clear); COLOR,URINE YELLOW (Yellow); GLUCOSE, URINE NEGATIVE (Neg); KETONES,URINE NEGATIVE (Neg); LEUKOCYTE ESTERASE ,URINE NEGATIVE (Neg); NITRITES, URINE NEGATIVE (Neg); OCCULT BLOOD,URINE NEGATIVE (Neg); PROTEIN,URINE NEGATIVE (Neg)
[2018-02-28 20:12] LABS: UA COLLECTION TYPE CLN CATCH MIDSTREAM
[2018-02-28] MEDS ORDERED: AMIO200T40 PO (20:20)
[2018-02-28] MEDS ORDERED: CARV-49 PO (20:21)
[2018-02-28] MEDS ORDERED: LISI-600 PO (20:22)
[2018-02-28] MEDS ORDERED: APIX5TAB3 PO (20:23)
[2018-02-28] MEDS ORDERED: magnesium hydroxide 30ml (MOM) UD suspension PO PRN (23:15)
[2018-02-28] MEDS ORDERED: ondansetron/PF 4mg/2ml inj IV PRN (23:15)
[2018-02-28] MEDS ORDERED: nitroGLYCERIN 0.4mg SUBLingual tab SL PRN (23:15)
[2018-02-28] MEDS ORDERED: acetaminophen 325mg tablet PO PRN (23:15)
[2018-02-28] MEDS ORDERED: mag hydrox/Alum hydrox/simeth 30ml oral suspension PO PRN (23:15)
[2018-03-01] VITALS (7 sets, daily range): BP systolic 146–172; BP diastolic 75–95
[2018-03-01 01:15] LABS: ALANINE AMINOTRANSFERASE 18 U/L (12-78); ALBUMIN/GLOBULIN RATIO 1.2 (1.1-1.5); ALKALINE PHOSPHATASE 57 IU/L (46-116); ANION GAP 3 (8-16); ASPARTATE AMINO TRANSFERASE 19 U/L (10-37); BILIRUBIN,TOTAL 0.6 MG/DL (0.1-1.0); BLOOD UREA NITROGEN 20 MG/DL (7-18); BUN/CREATININE RATIO 14.9 (5.4-32.0); CALCIUM 8.4 MG/DL (8.5-10.1); CHLORIDE 100 MMOL/L (99-107); CREATININE 1.34 MG/DL (0.60-1.10); GLUCOSE 126 MG/DL (70-104); POTASSIUM 3.5 MMOL/L (3.5-5.1); SODIUM 133 MMOL/L (135-145); TOTAL CARBON DIOXIDE 30.1 MMOL/L (24-32); TOTAL PROTEIN 5.5 G/DL (6.4-8.2); eGFR 50 ML/MIN
[2018-03-01] MEDS: lisinopril 20mg tablet PO SCH (07:48)
[2018-03-01] MEDS: amiodarone 200mg tablet PO SCH (07:48)
[2018-03-01] MEDS: carvedilol 6.25mg tablet PO SCH ×2 (07:49→20:53)
[2018-03-01] MEDS: apixaban 5mg tablet PO SCH ×2 (07:49→20:53)
[2018-03-01 07:54] LABS: BASOPHILS % (AUTO) 0.5 % (0-1); EOSINOPHILS # (AUTO) 0.1 X10'3 (0-0.9); EOSINOPHILS % (AUTO) 2.7 % (0-6); HEMATOCRIT 35.7 % (42.0-52.0); HEMOGLOBIN 12.2 g/dl (14.0-17.9); LYMPHOCYTES # (AUTO) 0.9 X10'3 (1.1-4.8); LYMPHOCYTES % (AUTO) 18.5 % (21-51); MEAN CORPUSCULAR HEMOGLOBIN 30.1 PG (27.0-31.0); MEAN CORPUSCULAR VOLUME 88.6 FL (78-98); MEAN PLATELET VOLUME 8.3 FL (7.4-10.4); MONOCYTES # (AUTO) 0.6 X10'3 (0-0.9); NEUTROPHILS # (AUTO) 3.2 X10'3 (1.8-7.7); NEUTROPHILS % (AUTO) 66.3 % (42-75); PLATELET COUNT 162 X10'3 (140-440); RED BLOOD COUNT 4.04 X10'6 (4.70-6.10); RED CELL DISTRIBUTION WIDTH 15.3 % (11.5-14.5); WHITE BLOOD COUNT 4.9 X10'3 (4.5-11.0)
[2018-03-01] MEDS ORDERED: potassium Cl 20 mEq SR tablet PO ONE ×2 (15:40→18:15)
[2018-03-02] VITALS (7 sets, daily range): BP systolic 144–184; BP diastolic 80–98
[2018-03-02 07:04] LABS: BASOPHILS % (AUTO) 0.8 % (0-1); EOSINOPHILS # (AUTO) 0.2 X10'3 (0-0.9); EOSINOPHILS % (AUTO) 3.6 % (0-6); HEMATOCRIT 32.7 % (42.0-52.0); HEMOGLOBIN 11.1 g/dl (14.0-17.9); LYMPHOCYTES % (AUTO) 22.3 % (21-51); MEAN CORPUSCULAR HEMOGLOBIN 30.1 PG (27.0-31.0); MEAN CORPUSCULAR HGB CONC 33.8 % (33.0-36.5); MEAN CORPUSCULAR VOLUME 89.1 FL (78-98); MEAN PLATELET VOLUME 8.7 FL (7.4-10.4); MONOCYTES # (AUTO) 0.6 X10'3 (0-0.9); MONOCYTES % (AUTO) 13.6 % (2-12); NEUTROPHILS # (AUTO) 2.7 X10'3 (1.8-7.7); NEUTROPHILS % (AUTO) 59.7 % (42-75); PLATELET COUNT 149 X10'3 (140-440); RED BLOOD COUNT 3.68 X10'6 (4.70-6.10); RED CELL DISTRIBUTION WIDTH 15.1 % (11.5-14.5); WHITE BLOOD COUNT 4.5 X10'3 (4.5-11.0)
[2018-03-02 07:39] LABS: ALANINE AMINOTRANSFERASE 21 U/L (12-78); ALBUMIN 2.8 G/DL (3.4-5.0); ALBUMIN/GLOBULIN RATIO 1.2 (1.1-1.5); ALKALINE PHOSPHATASE 48 IU/L (46-116); ANION GAP 4 (8-16); ASPARTATE AMINO TRANSFERASE 15 U/L (10-37); BILIRUBIN,TOTAL 0.6 MG/DL (0.1-1.0); BLOOD UREA NITROGEN 20 MG/DL (7-18); BUN/CREATININE RATIO 15.9 (5.4-32.0); CALCIUM 8.1 MG/DL (8.5-10.1); CHLORIDE 102 MMOL/L (99-107); CREATININE 1.26 MG/DL (0.60-1.10); GLUCOSE 85 MG/DL (70-104); POTASSIUM 4.6 MMOL/L (3.5-5.1); SODIUM 135 MMOL/L (135-145); TOTAL CARBON DIOXIDE 28.6 MMOL/L (24-32); TOTAL PROTEIN 5.2 G/DL (6.4-8.2); eGFR 54 ML/MIN
[2018-03-02] MEDS: apixaban 5mg tablet PO SCH ×2 (07:46→19:55)
[2018-03-02] MEDS: carvedilol 6.25mg tablet PO SCH ×2 (07:46→19:55)
[2018-03-02] MEDS: amiodarone 200mg tablet PO SCH (07:46)
[2018-03-02] MEDS: lisinopril 20mg tablet PO SCH (07:46)
[2018-03-03 03:00] VITALS: BP 149/71
[2018-03-03 05:40] LABS: ALANINE AMINOTRANSFERASE 17 U/L (12-78); ALBUMIN 2.9 G/DL (3.4-5.0); ALBUMIN/GLOBULIN RATIO 1.2 (1.1-1.5); ALKALINE PHOSPHATASE 52 IU/L (46-116); ANION GAP 5 (8-16); ASPARTATE AMINO TRANSFERASE 20 U/L (10-37); BILIRUBIN,TOTAL 0.6 MG/DL (0.1-1.0); BLOOD UREA NITROGEN 24 MG/DL (7-18); BUN/CREATININE RATIO 18.5 (5.4-32.0); CALCIUM 8.6 MG/DL (8.5-10.1); CHLORIDE 100 MMOL/L (99-107); GLUCOSE 89 MG/DL (70-104); POTASSIUM 4.2 MMOL/L (3.5-5.1); SODIUM 132 MMOL/L (135-145); TOTAL CARBON DIOXIDE 26.6 MMOL/L (24-32); TOTAL PROTEIN 5.3 G/DL (6.4-8.2); eGFR 52 ML/MIN
[2018-03-03 05:52] LABS: EOSINOPHILS # (AUTO) 0.2 X10'3 (0-0.9); EOSINOPHILS % (AUTO) 3.2 % (0-6); HEMATOCRIT 32.5 % (42.0-52.0); HEMOGLOBIN 10.9 g/dl (14.0-17.9); LYMPHOCYTES # (AUTO) 1.1 X10'3 (1.1-4.8); MEAN CORPUSCULAR HEMOGLOBIN 29.8 PG (27.0-31.0); MEAN CORPUSCULAR HGB CONC 33.5 % (33.0-36.5); MEAN PLATELET VOLUME 8.7 FL (7.4-10.4); MONOCYTES # (AUTO) 0.6 X10'3 (0-0.9); MONOCYTES % (AUTO) 11.5 % (2-12); NEUTROPHILS # (AUTO) 3.1 X10'3 (1.8-7.7); NEUTROPHILS % (AUTO) 62.3 % (42-75); PLATELET COUNT 145 X10'3 (140-440); RED BLOOD COUNT 3.65 X10'6 (4.70-6.10); RED CELL DISTRIBUTION WIDTH 15.4 % (11.5-14.5)
[2018-03-03 07:00] VITALS: BP 152/75
[2018-03-03] MEDS: carvedilol 6.25mg tablet PO SCH (08:57)
[2018-03-03] MEDS: apixaban 5mg tablet PO SCH (08:57)
[2018-03-03] MEDS: amiodarone 200mg tablet PO SCH (08:57)
[2018-03-03] MEDS: lisinopril 20mg tablet PO SCH (08:57)
[2018-03-03 09:15] VITALS: BP 116/59
[2018-03-03 11:00] VITALS: BP 131/80
[2018-03-03 15:00] VITALS: BP 139/79
[2018-03-03] MEDS ORDERED: HYDR-4070 PO (16:10)
== END 2018-03-03 17:05 | disposition home or self-care (01) | DRG 308 ==
LOC: ER 18:21 → ED HOLD 23:15 → PCU 3S 23:52
PROVIDERS: ADMIT Internal Medicine; ATTEND Family Medicine
PROC: 4A10X4Z Monitoring of Central Nervous Electrical Activity, External Approach (ICD-10-PCS; principal; 2018-03-02)
DX: I48.91 Unspecified atrial fibrillation (principal); I50.23 Acute on chronic systolic (congestive) heart failure; F03.90 Unspecified dementia, unspecified severity, without behavioral disturbance, psychotic disturbance, mood disturbance, and anxiety; I48.92 Unspecified atrial flutter; D32.9 Benign neoplasm of meninges, unspecified; N28.9 Disorder of kidney and ureter, unspecified; I07.1 Rheumatic tricuspid insufficiency; F41.9 Anxiety disorder, unspecified; I25.10 Atherosclerotic heart disease of native coronary artery without angina pectoris; I11.0 Hypertensive heart disease with heart failure; Z95.0 Presence of cardiac pacemaker; Z79.01 Long term (current) use of anticoagulants; Z79.899 Other long term (current) drug therapy; Z88.8 Allergy status to other drugs, medicaments and biological substances
CPT/HCPCS: 36415; 70450; 71045; 71250; 74176; 80053; 81003; 84484; 85025; 85610; 85730; 87070; 93005; 93306; 95816; 99285